=== PATIENT | female | born 2000 | race Caucasian/White ===

== ENCOUNTER 2022-02-13 11:03 | Emergency (ER) | payer MEDICAID ==
[~2022-02-13] VITALS: Ht 165.1 cm; Wt 118.0 kg
[2022-02-13 11:09] VITALS: BP 109/77
[2022-02-13 11:15] VITALS: BP 120/84
[2022-02-13] MEDS ORDERED: KEPPRA250 M1 PO (11:16)
[2022-02-13] MEDS ORDERED: LAMICTAL25 M1 PO (11:16)
[2022-02-13] MEDS ORDERED: TRAMADOL HYDROC50 M1 PO ×2 (11:34→12:01)
[2022-02-13 12:07] VITALS: BP 120/84
== END 2022-02-13 12:09 | disposition home or self-care (01) ==
LOC: ED 11:03
DX: M25.511 Pain in right shoulder (principal); R56.9 Unspecified convulsions

== ENCOUNTER 2022-03-05 18:21 | Emergency (ER) | payer MEDICAID ==
[~2022-03-05] VITALS: Ht 165.1 cm; Wt 115.0 kg
[~2022-03-05 18:21] MED LIST: KEPPRA250 M1 PO; LAMICTAL25 M1 PO; TRAMADOL HYDROC50 M1 PO
[2022-03-05] MEDS ORDERED: NAPROXEN500 MG PO (18:43)
[2022-03-05 18:44] VITALS: BP 122/80
== END 2022-03-05 18:54 | disposition home or self-care (01) ==
LOC: ED 18:21
DX: M25.511 Pain in right shoulder (principal); G40.909 Epilepsy, unspecified, not intractable, without status epilepticus; F17.210 Nicotine dependence, cigarettes, uncomplicated